=== PATIENT | female | born 1975 | race Caucasian/White ===

== ENCOUNTER → 2016-08-27 | Outpatient (CLI) | payer OTHER ==
--- NOTE | 2016-08-27 16:32 | MA ---
Screening Digital Mammogram With iCAD Analysis Clinical Indications: Routine screening. A maternal aunt was diagnosed with breast cancer in her 40s. Technique: Standard cephalocaudal projections are obtained. Digital breast tomosynthesis was performe d in the MLO projection with reconstruction at 1.0 mm slice thickness and composite MLO views reconst ructed. This examination is processed by the iCAD computer aided detection system. Comparison: August 2015. Breast density: Type C: Heterogeneously dense. Findings: CAD was reviewed. No masses, suspicious calcifications or secondary signs of malignancy are seen. There has been no significant change in the appearance of either breast. Impression: Negative mammogram. BI-RADS 1. Recommendation: Routine mammographic screening in one year as long as physical examination is negativ e in this patient with heterogeneously dense breast parenchyma. [facility] will send a result letter to the patient. Negative mammography should not preclude additional workup of a clinically suspicious finding. The patient's information is entered into a reminder system with a target due date for her next mammo gram.
== END ==
LOC: FIMAGING 15:02
DX: Z12.31 Encounter for screening mammogram for malignant neoplasm of breast (principal)
CPT/HCPCS: G0202

== ENCOUNTER → 2017-09-11 | Outpatient (CLI) | payer OTHER | LOC: FIMAGING 07:30 | PROVIDERS: ATTEND Nurse Practitioner Women's Health | DX: Z12.31 Encounter for screening mammogram for malignant neoplasm of breast (principal) ==

== ENCOUNTER → 2018-09-17 | Outpatient (CLI) | payer OTHER | LOC: FIMAGING 08:05 | PROVIDERS: ATTEND Nurse Practitioner Women's Health | DX: Z12.31 Encounter for screening mammogram for malignant neoplasm of breast (principal); Z80.3 Family history of malignant neoplasm of breast ==

== ENCOUNTER 2018-11-12 05:50 | Day surgery (SDC) | payer OTHER ==
--- NOTE | 2018-10-14 17:37 | GHP ---
[f rep st] PREOP HISTORY AND PHYSICAL DATE OF ADMISSION: 11/12/2018 PLANNED PROCEDURE: Hysteroscopy with morcellation of endometrial tissue and fibroid and an endometrial ablation. INDICATIONS: The patient is a 43-year-old, zero, who has a history of progressively worsening menorrhagia. Patient has a long history of infertility , so she has not been using control. She tried IVF and had no known etiology as to what caused her infertility. The patient had been every 22 to 23 days for the last several years. Over the last 8 months, the cycles have gotten progressively more unpredictable and significantly heavier. Patient had to come back early from a backpacking trip due to not planning to have her period and it was incredibly heavy. That was the final straw and she has decided to proceed with interventions to manage her cycles. Patient states her cycles are slightly irregular. They last 6 days. She has to use super plus tampons and change frequently. A pelvic ultrasound was obtained which showed a uterus measuring 7.2 x 3.6 x 4.65 cm with an endometrium of 0.43 cm. She has 3 fibroids, 1 posterior mid submucosal which is 1.8 x 1.6 x 1.6 cm, an anterior submucosal fundal fibroid measuring 0.8 x 0.9 x 0.9 cm, and a posterior intramural fibroid measuring 0.9 x 0.7 x 0.87 cm. Ovaries are unremarkable. Management options were reviewed with the patient including expectant management, a combination of control pills, Mirena IUD , Lysteda, hysteroscopy with morcellation of fibroid plus/minus endometrial ablation, and hysterectomy. Patient is electing to proceed with a hysteroscopy with morcellation of endometrial tissue and an endometrial ablation. Patient declined an EMB in the office. She is aware that that if the pathology is abnormal, she will need to undergo a hysterectomy and it might interfere with staging. Patient has been properly consented. MEDICAL HISTORY: Significant for infertility, history of lichen sclerosus. MEDICATIONS: Supplements, calcium, turmeric, acyclovir as needed, Avar, and Soolantra. SURGICAL HISTORY: Hysteroscopy with polypectomy, multiple diagnostic procedures for infertility, wrist surgery. ALLERGIES: No known drug allergies. SOCIAL HISTORY: Patient is . She does not have any children. She denies tobacco or drug use. She does drink 10 alcoholic beverages a week. FAMILY MEDICAL HISTORY: Noncontributory. RN MENTAL HEALTH HISTORY: Her periods are progressively more slightly irregular, 21 to 26 days, lasting 6 days, are very heavy. She is a zero. The patient denies any history of any abnormal Pap smears or sexually transmitted diseases. PHYSICAL EXAMINATION: VITAL SIGNS: Stable. GENERAL: Alert and oriented x3. MUSCULOSKELETAL: Grossly intact. PSYCH: Appropriate affect. NEURO: Grossly intact. NECK: Mobile and supple. HEART: Regular. LUNGS: Clear to auscultation bilaterally. ABDOMEN: Soft, nondistended, nontender. EXTREMITIES : No calf tenderness or edema. PELVIC: Mobile midposition uterus which is slightly enlarged in size. No adnexal masses are found. Pelvic ultrasound was described above. ASSESSMENT AND PLAN: A 43-year-old zero with menorrhagia. She is requesting surgery with hysteroscopy with morcellation of endometrial tissue and an endometrial ablation. Risks and benefits were extensively reviewed with the patient, and patient was properly consented. /[id number]/MODL MTDD
[2018-11-12] MEDS ORDERED: DOXYCYCLINE INJ 100 MG in NS 250 ML IV ONE (06:00)
[2018-11-12] MEDS ORDERED: LR 1,000 ML IV ONE (06:20)
[2018-11-12] MEDS ORDERED: MIDAZOLAM 2 MG/2 ML VIAL IVP ONE (06:52)
--- NOTE | 2018-11-12 06:52 | PDANEPAE ---
ANE History of Present Illness Hysteroscopy, morcellation of fibroid uterus ANE Past Medical History - Cardiovascular History Hx Hypertension: No Hx Arrhythmias: No Hx Chest Pain: No Hx Coronary Artery / Peripheral Vascular Disease: No Hx CHF / Valvular Disease: No Hx Palpitations: No - Pulmonary History Hx COPD: No Hx Asthma/Reactive Airway Disease: No Hx Recent Upper Respiratory Infection: No Hx Oxygen in Use at Home: No Hx Sleep Apnea: No Sleep Apnea Screening Result - Last Documented: Negative - Neurologic History Hx Cerebrovascular Accident: No Hx Seizures: No Hx Dementia: No - Endocrine History Hx Diabetes: No - Renal History Hx Renal Disorders: No - Liver History Hx Hepatic Disorders: No - Neurological & Psychiatric Hx Hx Neurological and Psychiatric Disorders: No - Cancer History Hx Cancer: No - Congenital Disorder History Hx Congenital Disorders: No - GI History Hx Gastrointestinal Disorders: No - Other Health History Other Health History: hx of rosacea. uterine fibroids - Chronic Pain History Chronic Pain: No - Surgical History Prior Surgeries: bilateral carpel tunnel repair. IVF procedures ANE Review of Systems Review of systems is: negative Review of Systems: - Exercise capacity METS (RN): 5 METS ANE Patient History - Allergies Allergies/Adverse Reactions: No Known Drug Allergies Allergy (Verified 10/10/18 15:19) - Home Medications Home medications: home medication list seen and reviewed Home Medications: Adult One Daily Multivit Tab 10/29/18 [Last Taken Unknown] Turmeric 10/29/18 [Last Taken Unknown] - NPO status NPO Since - Liquids (Date): 11/11/18 NPO Since - Liquids (Time): 21:00 NPO Since - Solids (Date): 11/12/18 NPO Since - Solids (Time): 06:00 - Anes Hx Anes Hx: slow to awaken from anesthesia - Smoking Hx Smoking Status: Former smoker - Family Anes Hx Family Anes Hx: none Family Hx Anesthesia Complications: none ANE Labs/Vital Signs - Vital Signs Vital Signs: reviewed preoperatively; see RN documention for details Blood Pressure: 102/65 Heart Rate: 60 Respiratory Rate: 15 O2 Sat (%): 95 Height: 165.1 cm Weight: 61.235 kg ANE Physical Exam - Airway Neck exam: FROM Mallampati Score: Class 1 Mouth exam: normal dental/mouth exam - Pulmonary Pulmonary: no respiratory distress - Cardiovascular Cardiovascular: regular rate and rhythym - ASA Status ASA Status: I ANE Anesthesia Plan Anesthesia Plan: GA w LMA
[2018-11-12] MEDS ORDERED: MIDAZOLAM 2 MG/2 ML VIAL ONE (07:05)
[2018-11-12] MEDS ORDERED: LIDOCAINE 2% 100 MG/5 ML SYR ONE (07:10)
[2018-11-12] MEDS ORDERED: PROPOFOL/EMULSION 500 MG/50 ML BOTTLE IV ONE (07:10)
[2018-11-12] MEDS ORDERED: DEXAMETHASONE 4 MG/ML VIAL ONE (07:10)
[2018-11-12] MEDS ORDERED: fentaNYL 100 MCG/2 ML INJ ONE (07:10)
[2018-11-12] MEDS ORDERED: ONDANSETRON 4 MG/2 ML VIAL ONE (07:10)
--- NOTE | 2018-11-12 07:10 | PDHPUP ---
History & Physical Update H&P update statement: This history and physical update is based on an assessment of the patient which was completed after admission or registration (within 24 hours), but prior to the surgery/procedure. H&P update: H&P reviewed & patient examined, no change in patient's condition since H&P completed
[2018-11-12] MEDS ORDERED: SILVER NITRATE APPLICATOR 1 APPL TP ONE (07:19)
[2018-11-12] MEDS ORDERED: ONDANSETRON 4 MG/2 ML VIAL IVP PRN (07:40)
[2018-11-12] MEDS ORDERED: oxyCODONE IR 5 MG TAB PO PRN (07:40)
[2018-11-12] MEDS ORDERED: NALOXONE HCL 0.4 MG/ML INJ IVP PRN (07:40)
[2018-11-12] MEDS ORDERED: HYDROmorphONE/DILAUDID 1 MG/ML INJ IVP PRN (07:40)
[2018-11-12] MEDS ORDERED: fentaNYL 100 MCG/2 ML INJ IVP PRN (07:40)
[2018-11-12] MEDS ORDERED: HYDROCODONE/APAP 5/325 TAB PO PRN (07:40)
[2018-11-12] MEDS ORDERED: DEXAMETHASONE 4 MG/ML VIAL IVP PRN (07:40)
[2018-11-12] MEDS ORDERED: PROMETHAZINE HCL 25 MG/ML INJ IVP PRN (07:40)
[2018-11-12] MEDS ORDERED: MEPERIDINE 25 MG/0.5 ML AMP IVP PRN (07:40)
--- NOTE | 2018-11-12 07:41 | POSTANESTH ---
Post Anesthetic Evaluation Cardiovascular Status: Normal, Stable, Similar to Pre-Op Cond Respiratory Status: Normal, Stable, Similar to Pre-op Cond. Level of Consciousness/Mental Status: Can Participate in Eval, Mildly Sleepy, Arousable Pain Control: Adequate, Prn Tx Ordered Nausea/Vomiting Control: Adequate, Prn Tx Ordered Complications Possibly Related to Anesthesia: None Noted
[2018-11-12] MEDS ORDERED: HYDROCODONE/APAP 5/325 TAB ONE (08:56)
--- NOTE | 2018-11-12 09:19 | GOP ---
[f rep st] OPERATIVE REPORT DATE OF OPERATION: 11/12/2018 SURGEON: Marianne Olivia DO ANESTHESIA: General with LMA. ANESTHESIOLOGIST: Nav Price MD. PREOPERATIVE DIAGNOSIS: Menorrhagia and symptomatic fibroids. POSTOPERATIVE DIAGNOSIS: Menorrhagia and symptomatic fibroids. PROCEDURE PERFORMED: Hysteroscopy with morcellation of endometrial tissue and endometrial polyp and fibroid and endometrial ablation. FINDINGS: Mobile midposition uterus with no adnexal masses. Stenotic cervix on entry. SPECIMENS: Endometrial curettings post OT. INDICATIONS: Patient is a 43-year-old 0 with a history of progressively worsening menorrhagi a. She also has a long history of infertility, so she has not been using control. The patient had pelvic ultrasound. She has to use super plus tampons and change them frequently. Pelvic ultras ound showed a uterus with 2 submucosal fibroids. Management options were reviewed with the patient. Decision was made to proceed with a hysteroscopy with morcellation of endometrial tissue and fibroid s and polyps and endometrial ablation. Risks and benefits of the procedure were reviewed with the butch munguia, and the patient was properly consented. DESCRIPTION OF PROCEDURE: Patient was taken to the operating room with intravenous fluids in place. She was given 100 mg of doxycycline intravenously. She was then placed on the operating room table in the dorsal supine position where general anesthesia was obtained. She was then repositioned into the dorsal lithotomy position with the Yellofin stirrups and prepped and draped in normal sterile fas hion. Exam under anesthesia revealed a mobile, midposition uterus with no adnexal masses. A speculu m was then placed in the patient's vagina. An Allis clamp was used to grasp the anterior lip of the cervix. The cervix was noted to be stenotic and an os finder was used to dilate to locate the cervic al os. The cervix was then carefully dilated to allow for the introduction of a large operative hyst eroscope. The hysteroscope was then introduced with fluid medium running. The endometrial cavity wa s noted to be thickened. A polyp blade was then introduced and a circumferential morcellation was pe rformed. The fibroid blade was also then introduced, and the submucosal fibroid was removed as much as possible. The hysteroscope was then withdrawn. The uterus sounded to 7 cm. The Jana was then inserted with a cavity length of 4 cm, and after cavity assessment was performed and passed, an endo metrial ablation was performed. The Jana was then withdrawn. The hysteroscope was then reintrodu francia with fluid medium running. The diffusely ablated endometrial cavity was noted. Instruments were then removed from the patient's vagina. The patient was then returned to the dorsal supine position where she was easily awoken from anesthesia. Sponge count was correct. The patient was transported to recovery room in stable condition. HYSTEROSCOPIC FINDINGS: Diffusely thickened endometrium and submucosal fibroid. Bilateral tubal ost ia visualized. Post ablation hysteroscopic findings diffusely ablated endometrium. /[id number]/MODL
[2018-11-12 10:02] VITALS: BP 118/66
== END 2018-11-12 10:10 | disposition home or self-care (01) ==
LOC: FSGY 05:50
PROVIDERS: ATTEND Obstetrics & Gynecology
DX: N92.0 Excessive and frequent menstruation with regular cycle (principal); N84.0 Polyp of corpus uteri; N88.2 Stricture and stenosis of cervix uteri; D25.9 Leiomyoma of uterus, unspecified; Z87.891 Personal history of nicotine dependence
CPT/HCPCS: 58563; C1782; J1100; J2001; J2250; J2405; J2704; J3010